=== PATIENT | male | born 1935 | race Caucasian/White ===

== ENCOUNTER 2016-09-12 07:37 | Observation (INO) | payer BC ==
[2016-09-05 11:25] LABS: BASOPHILS 0.7 %; BASOPHILS ABSOLUTE 0.05 10/3/uL (0.0-0.16); EOSINOPHILS 3.5 %; EOSINOPHILS ABSOLUTE 0.24 10/3/uL (0.0-0.53); HEMATOCRIT 45.2 % (40.0-51.0); HEMOGLOBIN 14.8 g/dL (13.6-17.8); IMMATURE GRANULOCYTES 0.1 %; IMMATURE GRANULOCYTES ABSOLUTE 0.01 10/3/uL (0.0-0.11); LYMPHOCYTES 25.8 %; LYMPHOCYTES ABSOLUTE 1.79 10/3/uL (0.67-4.30); MEAN CORPUS HGB CONC 32.7 g/dL (32.0-36.0); MEAN CORPUSCULAR HEMOGLOB 30.8 pg (26.0-34.0); MEAN PLATELET VOLUME 10.2 fL (9.2-13.0); MONOCYTES 8.9 %; MONOCYTES ABSOLUTE 0.62 10/3/uL (0.21-1.20); NEUTROPHILS ABSOLUTE 4.22 10/3/uL (2.02-8.40); PLATELET COUNT 213 10/3/uL (150-400); RBC DISTRIBUTION WIDTH 13.3 % (12.0-16.0); RED CELL COUNT 4.81 10/6/uL (4.7-6.1); WHITE BLOOD CELLS 6.9 10/3/uL (4.5-10.5)
[2016-09-05 11:26] LABS: MANUAL DIFF NO %
[2016-09-05 11:43] LABS: A/G RATIO 1.4 (0.7-1.9); ALBUMIN 3.8 G/DL (3.5-5.0); ALKALINE PHOSPHATASE 56 U/L (45-117); BUN (BLOOD UREA NITROGEN) 21 MG/DL (6-23); CHLORIDE, SERUM 106 MMOL/L (96-112); CO2 (CARBON DIOXIDE) 33 MMOL/L (24-34); CREATININE 0.89 MG/DL (0.70-1.30); GFR AFRICAN AMERICAN 92 ML/MIN (>=60); GFR NON AFRICAN AMERICAN 79 ML/MIN (>=60); GLOBULIN 2.8 G/DL (2.5-4.1); GLUCOSE, SERUM 105 MG/DL (60-99); POTASSIUM, SERUM 4.5 MMOL/L (3.5-5.3); SGOT(AST) 17 U/L (5-40); SGPT(ALT) 23 U/L (5-65); SODIUM, SERUM 143 MMOL/L (135-148); TOTAL BILIRUBIN 1.4 MG/DL (0-1.2); TOTAL PROTEIN 6.6 G/DL (6.0-8.5)
--- NOTE | ~2016-09-12 | OP ---
Record Of Operation [facility] [address] [place]. 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 POSTOPERATIVE DIAGNOSIS: Transitional cell cancer of the bladder. OPERATIVE PROCEDURE: Cystoscopy, transurethral resection of bladder tumor (3.5 cm to 4 cm). ANESTHESIA: General endotracheal. SURGEON: Denver Breaux M.D. ESTIMATED BLOOD LOSS: 15-20 mL. SPECIMENS: Bladder tumor chips. COMPLICATIONS: None. DRAINS: One #22 three-way Plunkett catheter 10 mL balloon to continuous normal saline irrigation. COMPLICATIONS: None. IMMEDIATE POSTOP: Satisfactory. DESCRIPTION OF PROCEDURE: The patient was brought into the cystoscopy suite, given general inhalational anesthetic, and placed in lithotomy position. Perineum and genitalia were prepped and draped in sterile fashion. Video cystourethroscopy was then performed using a #22 cystoscope Foroblique lens. Distal urethra was normal. Prostate was visually occlusive. In the anterior wall of the bladder neck was seen to emanate a broad-based papillary-appearing lesion, which extended from approximately the 2 o'clock to the 10 o'clock position and estimated to be about 3.5 cm. It did not appear to actually involve the prostatic urethra. The remainder of the bladder was inspected. No additional lesions were noted. This lesion was well away from each ureteral orifice, which were easily identified. At this point, after careful inspection of the bladder with both the right angle and Foroblique lens, the cystoscope was removed, and the urethra was dilated with [place] sounds to a 30 followed by insertion of a #26 continuous flow resectoscope sheath and obturator. The obturator was removed, placed working element and Foroblique lens. The tumor was then resected carefully. The tumor was resected in its entirety down to muscle base. There was no evidence of perforation of the bladder muscle. The lesion did not appear to involve the prostatic urethra proper. Hemostasis was obtained with electrocautery. The chips were evacuated through the resectoscope and a #22 three-way Plunkett catheter 10 mL balloon was placed in the bladder. Balloon inflated, hooked to drainage and continuous irrigation. The patient tolerated the procedure well. At this point, he was awakened and sent to recovery in satisfactory condition. Record Of Operation [address] [place]. [address] NAME: SHAHZAD BUSTOS : 31 STATUS : ADM Jordon PAT#: [id number] AGE: 81 ADM/REG DATE : 09/12/16 MR#: [id number] REPORT SERV DATE: 09/12/16 DICTATED BY: DENVER BREAUX DATE: 09/12/16 REPORT STATUS : Draft TRANSCRIBED BY: SHIMA DATE: 09/12/16 /SHIMA Denver Breaux M.D. / [id number] CC: Denver Breaux M.D.
[~2016-09-12 07:37] MED LIST: ACID REDUCER OTC PO; CALTRAT600 PO; COREG3 PO; LEVOTHYROXIN100 MCG PO; PROSCAR5 PO; RAPAFLO4 MG PO; VITAMIN B-121000 MC1 SL; VITAMIN D2000 UNIT PO; ZOCOR20 PO; [UNRECOGNIZED DRUG - OTHER] PO
[2016-09-13 06:31] LABS: HEMATOCRIT 42.7 % (40.0-51.0); HEMOGLOBIN 14.4 g/dL (13.6-17.8)
[2016-09-13 06:45] LABS: BUN (BLOOD UREA NITROGEN) 16 MG/DL (6-23); CALCIUM, SERUM 9.1 MG/DL (8.5-10.4); CHLORIDE, SERUM 105 MMOL/L (96-112); CO2 (CARBON DIOXIDE) 28 MMOL/L (24-34); CREATININE 0.91 MG/DL (0.70-1.30); GFR AFRICAN AMERICAN 90 ML/MIN (>=60); GFR NON AFRICAN AMERICAN 78 ML/MIN (>=60); GLUCOSE, SERUM 138 MG/DL (60-99); POTASSIUM, SERUM 4.3 MMOL/L (3.5-5.3); SODIUM, SERUM 141 MMOL/L (135-148)
[2016-09-13] MEDS ORDERED: DSS PO (11:27)
== END 2016-09-13 17:16 | disposition home or self-care (01) ==
LOC: SDC 07:37 → 4SO 11:06
PROVIDERS: Urology
PROC: 0TBB8ZZ Excision of Bladder, Via Natural or Artificial Opening Endoscopic (ICD-10-PCS; principal; 2016-09-12 08:45)
DX: C67.9 Malignant neoplasm of bladder, unspecified (principal); I10 Essential (primary) hypertension; K21.9 Gastro-esophageal reflux disease without esophagitis; E03.9 Hypothyroidism, unspecified; Z88.2 Allergy status to sulfonamides; Z88.0 Allergy status to penicillin
CPT/HCPCS: 71020; 80048; 80053; 85014; 85018; 85025; 88307; 88341; 88342; 93005; A9270-GY; G0378; J2405; J2710; J3010